=== PATIENT | female | born 1975 | race Caucasian/White ===

== ENCOUNTER 2023-11-04 21:29 | Emergency (ER) | payer OTHER ==
[2023-11-04 21:36] VITALS: RESP 18; BMI 30.7
[2023-11-04] MEDS: SODIUM CHLORIDE 1,000 ML IV STA (22:18)
[2023-11-04 22:24] LABS: HEMATOCRIT 38.5 % (32.4-45.2); HEMOGLOBIN 12.7 G/dL (10.7-15.3); MCH 30.8 pg (25.7-33.7); MCHC 33.1 g/dl (32.0-36.0); MEAN CELL VOLUME 93.3 fl (80-96); MEAN PLT VOLUME 8.7 fl (7.5-11.1); PLATELET COUNT 225.6 10^3/uL (134-434); RBC 4.13 10^6/uL (3.60-5.2); RDW 13.7 % (11.6-15.6); WHITE BLOOD COUNT 11.2 10^3/uL (4.0-10.8)
[2023-11-04 22:31] LABS: INR 1.33 (0.83-1.09); PROTHROMBIN TIME (PATIENT) 15.3 SEC (9.7-13.0)
[2023-11-04 22:41] VITALS: BP 125/78; PULSE 87; TEMP 98.8
[2023-11-04 22:43] LABS: BILIRUBIN,TOTAL 0.7 mg/dl (0.2-1); CREATININE 0.6 mg/dl (0.6-1.3); POTASSIUM 3.7 mmol/L (3.5-5.1); TOT PROT 6.6 g/dl (6.4-8.2)
[2023-11-04 22:50] LABS: PLATELET ESTIMATE ADEQUATE
[2023-11-04 22:50] LABS: EPITHELIAL CELLS 0-5 /hpf
[2023-11-05] MEDS ORDERED: metroNIDAZOLE 250 MG TABLET ONE (00:39)
[2023-11-05] MEDS: metroNIDAZOLE 500 MG TABLET PO ONE (00:42)
== END 2023-11-05 00:45 | disposition home or self-care (01) ==
LOC: FER 21:29
PROC: 3E0337Z Introduction of Electrolytic and Water Balance Substance into Peripheral Vein, Percutaneous Approach (ICD-10-PCS; principal; 2023-11-04)
DX: R10.30 Lower abdominal pain, unspecified (principal); R63.0 Anorexia; R50.9 Fever, unspecified; K57.92 Diverticulitis of intestine, part unspecified, without perforation or abscess without bleeding
CPT/HCPCS: 36415; 74177-TC; 80053; 81003; 81015; 81025; 85027; 85610; 87086; 99285-25; Q9967